=== PATIENT | male | born 2005 | race Caucasian/White ===

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

== ENCOUNTER 2025-02-18 20:25 | Emergency (ER) | payer BC | END 2025-02-18 22:29 | disposition home or self-care (01) | LOC: JD.ED 20:25 | DX: R07.89 Other chest pain (principal); M25.512 Pain in left shoulder | CPT/HCPCS: 71046; 71046-26; 73030-26-LT; 73030-LT; 99283; 99284 ==

== ENCOUNTER 2025-03-18 11:16 | Emergency (ER) | payer BC ==
[2025-03-18] MEDS: Ketorolac 60 MG/2 ML SDV IM ONE (12:10)
== END 2025-03-18 13:50 | disposition home or self-care (01) ==
LOC: JD.ED 11:16
DX: M25.512 Pain in left shoulder (principal)
CPT/HCPCS: 73200-26-LT; 73200-LT; 99283